=== PATIENT | female | born 1975 | race Caucasian/White ===

== ENCOUNTER 2016-12-11 20:44 | Emergency (ER) | payer MEDICAID ==
[~2016-12-11] VITALS: Ht 162.6 cm; Wt 97.5 kg
[2016-12-11 20:48] VITALS: BP 149/94
--- NOTE | 2016-12-11 20:58 | NUR ---
AMBULATED TO ER BED 7
--- NOTE | 2016-12-11 21:08 | NUR ---
41 YO PATIENT PRESENTS TO ED WITH SORE THROAT AND CHILLS . PT STATES PT STATES HAS HAD FOR APPROX. 1 WEEK . C/O SOME NAUSEA; SKIN IS PINK/WARM/DRY; AAOX4 WITH EVEN AND STEADY GAIT; LUNGS CLEAR BL; HR EVEN AND REGULAR; PT DENIES ANY FEVER, CP, SOB, OR COUGH AT THIS TIME; PATIENT STATES PAIN OF 8/10 AT THIS TIME; VSS; PATIENT POSITIONED FOR COMFORT; HOB ELEVATED; BEDRAILS UP X2; BED DOWN. ER MD MADE AWARE OF PT STATUS.
--- NOTE | 2016-12-11 21:10 | NUR ---
Patient being evaluated by physician at bedside.
[2016-12-11] MEDS ORDERED: DEXAMETHASONE 10 MG/ML VIAL PO ONE (21:15)
--- NOTE | 2016-12-11 22:08 | NUR ---
PT TO XRAY
[2016-12-11 22:51] VITALS: BP 145/82
--- NOTE | 2016-12-11 22:51 | NUR ---
Patient discharged with v/s stable. Written and verbal after care instructions given and explained. Patient alert, oriented and verbalized understanding of instructions. Ambulatory with steady gait. All questions addressed prior to discharge. ID band removed. Patient advised to follow up with PMD. Rx of NAPROSYN 500MG TABLET given. Patient educated on indication of medication including possible reaction and side effects. Opportunity to ask questions provided and answered.
== END 2016-12-11 22:51 | disposition home or self-care (01) ==
LOC: MED 20:44
DX: J02.9 Acute pharyngitis, unspecified (principal); R43.8 Other disturbances of smell and taste; Z90.49 Acquired absence of other specified parts of digestive tract; Z90.89 Acquired absence of other organs
CPT/HCPCS: 70360; 81002; 81025; 99284; J1100